=== PATIENT | female | born 1990 | race African-American/Black ===

== ENCOUNTER 2020-10-26 01:56 | Emergency (ER) | payer OTHER ==
[~2020-10-26] VITALS: Ht 167.6 cm; Wt 59.9 kg
[~2020-10-26 01:56] MED LIST: ACET-285 PO; PREN-96 PO
[2020-10-26 02:08] VITALS: BP 134/82
== END 2020-10-26 02:25 ==
LOC: ER 01:56 → EDBD 01:56 → EDUNIT# 01:56 → ER 02:25
DX: Z02.2 Encounter for examination for admission to residential institution (principal)

== ENCOUNTER 2023-08-25 12:55 | Emergency (ER) | payer MEDICAID ==
[~2023-08-25] VITALS: Ht 165.1 cm; Wt 60.5 kg
[2023-08-25 14:20] VITALS: BP 120/78; PULSE 115; RESP 16; TEMP 97.5; O2SAT 98
[2023-08-25] MEDS ORDERED: QUET50TA PO (14:20)
[2023-08-25] MEDS ORDERED: SERT25TA84 PO (14:20)
== END 2023-08-25 14:32 | disposition home or self-care (01) ==
LOC: ER 12:55
DX: F31.9 Bipolar disorder, unspecified (principal); F20.9 Schizophrenia, unspecified; Z76.0 Encounter for issue of repeat prescription

== ENCOUNTER 2024-06-21 02:18 | Emergency (ER) | payer MEDICAID ==
[~2024-06-21] VITALS: Ht 170.2 cm; Wt 68.2 kg
[~2024-06-21 02:18] MED LIST changes: +QUET50TA PO; +SERT25TA84 PO
[2024-06-21] MEDS: HALOPERIDOL LACTATE 5 MG/ML INJ VIAL IM ONE (06:16)
[2024-06-21 07:45] VITALS: O2SAT 100
[2024-06-21 08:00] VITALS: BP 111/79; PULSE 92; RESP 16; TEMP 97.8; O2SAT 100
[2024-06-21 08:13] LABS: Chloride 107 mmol/L (98-107); Potassium 4.3 mmol/L (3.5-5.1); Sodium 139 mmol/L (136-145)
[2024-06-21 08:14] LABS: Anion Gap 5 (5-15); Calcium 8.7 mg/dL (8.7-10.4); Carbon Dioxide 27 mmol/L (20-30)
[2024-06-21 08:19] LABS: BUN/Creatinine Ratio 12.5 (10.0-20.0); Blood Alcohol < 3.0 mg/dL (<10); Blood Urea Nitrogen 9 mg/dL (9-23); Glucose 76 mg/dL (74-106)
[2024-06-21 08:22] LABS: Basophils # (auto) 0 10 ^3/uL (0-0.2); Basophils % (auto) 0.7 % (0.0-2.0); Eosinophils # (auto) 0.1 10 ^3/uL (0-0.8); Hematocrit 34.9 % (36.0-46.0); Hemoglobin 11.6 g/dL (12.2-16.2); Lymphocytes # (auto) 1.4 10 ^3/uL (0.4-5.4); Lymphocytes % (auto) 21.7 % (10.0-50.0); Mean Corpuscular Hemoglobin 33.3 pg (28.0-32.0); Mean Corpuscular Hgb Conc. 33.1 g/dL (32.0-36.0); Mean Corpuscular Volume 100.4 fL (80.0-100.0); Monocytes # (auto) 0.6 10 ^3/uL (0-1.3); Monocytes % (auto) 9.8 % (0.0-12.0); Neutrophils # (auto) 4.3 10 ^3/uL (1.6-8.6); Neutrophils % (auto) 65.8 % (37.0-80.0); Red Blood Cells 3.47 10^6/uL (4.0-5.20); Red Cell Distribution Width 13.7 % (11.8-14.3); White Blood Cell 6.5 10^3/uL (4.4-10.8)
[2024-06-21 10:29] LABS: Acetaminophen < 2.0 UG/ML (10.0-20.0)
[2024-06-21 10:36] LABS: Salicylate < 3.0 mg/dL (2.8-20.0)
== END 2024-06-21 08:49 | disposition left against medical advice (07) ==
LOC: EDBD 02:18 → ER 02:18
DX: F20.9 Schizophrenia, unspecified (principal); R41.82 Altered mental status, unspecified
CPT/HCPCS: 36415; 80048; 80320; 80329; 85025

== ENCOUNTER 2024-06-21 23:39 | Emergency (ER) | payer MEDICAID ==
[~2024-06-21] VITALS: Ht 167.6 cm; Wt 48.0 kg
[2024-06-22] MEDS: HALOPERIDOL LACTATE 5 MG/ML INJ VIAL IM ONE (00:20)
[2024-06-22 01:13] LABS: Basophils # (auto) 0 10 ^3/uL (0-0.2); Basophils % (auto) 0.3 % (0.0-2.0); Eosinophils # (auto) 0 10 ^3/uL (0-0.8); Hematocrit 33.3 % (36.0-46.0); Hemoglobin 11.2 g/dL (12.2-16.2); Lymphocytes # (auto) 0.8 10 ^3/uL (0.4-5.4); Mean Corpuscular Hemoglobin 33.6 pg (28.0-32.0); Mean Corpuscular Hgb Conc. 33.6 g/dL (32.0-36.0); Mean Corpuscular Volume 99.9 fL (80.0-100.0); Monocytes # (auto) 0.9 10 ^3/uL (0-1.3); Monocytes % (auto) 7.5 % (0.0-12.0); Neutrophils # (auto) 9.6 10 ^3/uL (1.6-8.6); Neutrophils % (auto) 85.2 % (37.0-80.0); Red Blood Cells 3.34 10^6/uL (4.0-5.20); Red Cell Distribution Width 13.5 % (11.8-14.3); White Blood Cell 11.3 10^3/uL (4.4-10.8)
[2024-06-22 01:26] LABS: Chloride 111 mmol/L (98-107); Potassium 3.5 mmol/L (3.5-5.1); Sodium 143 mmol/L (136-145)
[2024-06-22 01:27] LABS: Anion Gap 10 (5-15); Calcium 8.6 mg/dL (8.7-10.4); Carbon Dioxide 22 mmol/L (20-30)
[2024-06-22 01:32] LABS: BUN/Creatinine Ratio 10.9 (10.0-20.0); Blood Urea Nitrogen 10 mg/dL (9-23); Glucose 72 mg/dL (74-106)
[2024-06-22 01:35] LABS: Salicylate < 3.0 mg/dL (2.8-20.0)
[2024-06-22 01:43] LABS: Acetaminophen < 2.0 UG/ML (10.0-20.0)
[2024-06-22 02:07] VITALS: PULSE 106; RESP 20; O2SAT 92
[2024-06-22 02:22] LABS: Blood Alcohol < 3.0 mg/dL (<10)
[2024-06-22 11:10] VITALS: PULSE 87; RESP 14; O2SAT 95
[2024-06-22 19:20] VITALS: PULSE 106; RESP 20; O2SAT 92
[2024-06-23 08:26] VITALS: RESP 20
[2024-06-23 19:30] VITALS: PULSE 77; RESP 16
[2024-06-24 19:30] VITALS: PULSE 100; RESP 14; O2SAT 98
[2024-06-25 09:00] VITALS: RESP 15
[2024-06-25 20:09] VITALS: BP 118/76; PULSE 101; RESP 16; TEMP 98.8; O2SAT 99
[2024-06-25] MEDS: traZODone HCL 50 MG TAB PO ONE (23:15)
[2024-06-25] MEDS: traZODone HCL 50 MG TAB ONE (23:16)
[2024-06-26] MEDS: traZODone HCL 50 MG TAB PO ONE (00:48)
== END 2024-06-26 15:08 | disposition left against medical advice (07) ==
LOC: ER 23:39 → EDBD 23:39 → ER 06-26 15:08
DX: F20.9 Schizophrenia, unspecified (principal); R41.82 Altered mental status, unspecified; Z79.899 Other long term (current) drug therapy
CPT/HCPCS: 36415; 80048; 80320; 80329; 85025; 96372; 99285; J1630